=== PATIENT | female | born 1990 | race Caucasian/White ===

== ENCOUNTER → 2019-06-30 | Outpatient (CLI) | payer OTHER ==
[~2019-06-30] MED LIST: AMPI500C8 PO; COLA100C5 PO; IBUP-1114 PO; KEFL500C OR; MACROBID OR; PRENTAB9 PO; PYRI200T OR; TUMS500C PO; TYLE1TAB5 PO; TYLENOL #3 OR
--- NOTE | 2019-06-30 14:26 | REP ---
Clinical: IUD complication Technique: Transabdominal pelvic ultrasound followed by transvaginal examination for better evaluation of the endometrium and adnexa with color Doppler evaluation of the ovaries. Findings: Bladder is collapsed. Anteverted uterus measures 8.4 x 4.1 x 4.8 cm. Endometrial complex measures 10 mm thickness and appears somewhat heterogeneous. No endocervical fluid or discrete abnormality appreciated. Bilateral ovaries are normal in vascularity without torsion. Left ovary measures 3.1 x 1.2 x 1.7 cm (RI 0.72). Right ovary measures 3.4 x 1.6 x 3.8 cm (RI 0.45) and includes 2.2 cm complex likely physiologic cyst. No pelvic fluid or adnexal mass lesion. Impression: 1. No discrete uterine or endometrial abnormality identified. 2. Complex right ovarian cyst likely physiologic.
== END ==
LOC: M WHC 13:18
PROVIDERS: ATTEND Advanced Practice Midwife
DX: T83.9XXA Unspecified complication of genitourinary prosthetic device, implant and graft, initial encounter (principal); N83.201 Unspecified ovarian cyst, right side; Y83.1 Surgical operation with implant of artificial internal device as the cause of abnormal reaction of the patient, or of later complication, without mention of misadventure at the time of the procedure

== ENCOUNTER → 2019-10-07 | Outpatient (REF) | payer OTHER ==
[2019-10-07 22:51] LABS: CHLAMYDIA DNA AMPLIFICATION NEGATIVE (NEGATIVE); GC DNA AMPLIFICATION NEGATIVE (NEGATIVE)
== END ==
LOC: M SFHCWAGY 16:46
PROVIDERS: ATTEND Advanced Practice Midwife
DX: Z11.3 Encounter for screening for infections with a predominantly sexual mode of transmission (principal)